=== PATIENT | male | born 1960 | race Caucasian/White ===

== ENCOUNTER 2020-06-16 09:14 | Outpatient (CLI) | payer OTHER, SELFPAY ==
[2020-06-17 19:22] LABS: COVID-19 RT-PCR UVMMC Result Negative (Negative)
== END 2020-06-16 09:34 ==
PROVIDERS: PCP Nurse Practitioner Family; Visit Provider Nurse Practitioner Family
DX: Z20.828 Contact with and (suspected) exposure to other viral communicable diseases (principal)
CPT/HCPCS: U0003